=== PATIENT | male | born 1995 | race African-American/Black ===

== ENCOUNTER 2017-07-03 19:18 | Emergency (ER) | payer SELFPAY ==
[~2017-07-03] VITALS: Ht 157.5 cm; Wt 62.0 kg
[2017-07-03 19:19] VITALS: BP 127/71; PULSE 86; RESP 16; TEMP 98.4; O2SAT 98
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
== END 2017-07-03 21:51 | disposition left against medical advice (07) ==
LOC: NEPD 19:18
DX: Z13.9 Encounter for screening, unspecified (principal)
CPT/HCPCS: 99281